=== PATIENT | female | born 1960 | race Caucasian/White ===

== ENCOUNTER 2021-08-23 15:13 | Emergency (ER) | payer BC, SELFPAY ==
[2021-08-23 17:29] VITALS: BP 165/93; PULSE 78; RESP 16; TEMP 37.1; O2SAT 96; BMI 21.2
[2021-08-23] MEDS: Ondansetron ODT 4 MG TAB.RAPDIS TRANSLINGU (17:36)
[2021-08-23 17:44] LABS: MANUAL DIFF FLAG NO
[2021-08-23 17:54] LABS: Basophils Percent Auto 0.3 % (0-2); Eosinophils Absolute Auto 0.2 X10*3/uL (0.0-0.4); Eosinophils Percent Auto 2.5 % (0-4); Hematocrit 41.8 % (37.0-47.0); Hemoglobin 14.5 g/dl (12.0-16.0); Imm Gran Abs Auto 0.01 X10*3/uL (0.00-0.03); Imm Gran Pct Auto 0.2 % (0.0-0.4); Lymphocytes Absolute Auto 0.7 X10*3/uL (1.2-4.9); Lymphocytes Percent Auto 11.9 % (20-40); Mean Corpuscular HGB Conc 34.7 g/dl (31.0-35.0); Mean Corpuscular Hemoglobin 31.4 pg (27.0-33.0); Mean Corpuscular Volume 90.5 fL (80.0-98.0); Mean Platelet Volume 10.7 fL (9.4-12.3); Monocytes Absolute Auto 0.4 X10*3/uL (0.1-1.2); Monocytes Percent Auto 6.8 % (2-11); Neutrophils Absolute Auto 4.8 x10*3/uL (2.0-8.3); Neutrophils Percent Auto 78.3 % (45-73); Platelet Count 221 X10*3/uL (160-400); Red Blood Count 4.62 X10*6/uL (4.20-5.50); Red Cell Distribution Width 12.5 % (11.0-16.0); White Blood Count 6.1 X10*3/uL (4.8-10.8)
[2021-08-23 18:01] LABS: Appearance Urine CLEAR; Color Urine YELLOW; Glucose Urine UA NEG (NEG); Leukocyte Esterase Urine NEG (NEG); Nitrite Urine NEG (NEG); PH 6.5 (5.0-8.0); Specific Gravity - Urine 1.015 (1.005-1.025); Urine Blood NEG (NEG); Urine Ketones NEG (NEG); Urine Protein NEG (NEG-TRACE)
[2021-08-23 18:05] LABS: Alanine Aminotransferase 15 U/L (0-31); Albumin Level 4.7 g/dL (3.5-5.0); Alkaline Phosphatase 64 U/L (39-117); Anion Gap 12 (12-20); Aspartate Amino Transferase 21 U/L (5-31); Bilirubin Direct 0.3 mg/dL (0.0-0.5); Bilirubin Total 0.8 mg/dL (0.0-1.0); Blood Urea Nitrogen 12 mg/dL (9-16); Calcium 9.3 mg/dL (8.4-10.2); Carbon Dioxide 26 mmol/L (22-29); Chloride 105 mmol/L (96-108); Creatinine Clr Calc Pharmacy 58.3; Estimated Glomerular Filt Rate > 60; Glucose Random 123 mg/dL (60-115); Potassium 3.8 mmol/L (3.3-5.1); Sodium 139 mmol/L (135-145); Total Protein 7.3 g/dL (6.5-8.0)
[2021-08-23 19:21] VITALS: BP 147/85; PULSE 78; RESP 18; O2SAT 99
--- NOTE | 2021-08-23 19:54 | ED.ABDPAIN ---
HPI - Abdominal Pain General Chief Complaint: Abdominal Pain Stated Complaint: abd pain Time Seen by Provider: 08/23/21 19:43 Source: patient Mode of arrival: ambulatory Limitations: no limitations History of Present Illness HPI narrative: Patient comes to emergency room complaining of abdominal cramping, dry heaving. Patient states that she has been evaluated multiple times in different emergency rooms, primary care physician, and gastroenterology. Patient states that she has been cleared multiple times. Patient denies vomiting, no diarrhea, occasional constipation. Related Data Previous Rx's Medication Instructions Recorded hyoscyamine sulfate 0.125 mg tablet 0.125 mg PO QID PRN dyspepsia #14 08/23/21 tabs Allergies Allergy/AdvReac Type Severity Reaction Status Date / Time From PERCOCET Allergy Unknown RASH Uncoded 11/13/19 15:58 percocet Allergy Unknown Rash Uncoded 08/23/21 17:27 Review of Systems Review of Systems Constitutional : No Weight loss, No Fever, No Chills, No Night Sweats, No Fatigue, No Malaise ENT/Mouth : No Hearing loss, No Ear Pain, No Nasal Congestion, No Sinus Pain, No Hoarseness, No sore throat, No Rhinorrhea, No Swallowing Difficulty Eyes: No Eye Pain, No Swelling, No Redness, No Foreign Body, No Discharge, No Vision Changes Cardiovascular : No Chest Pain, No SOB, No Dyspnea on Exertion, No Orthopnea, No Edema, No Palpitations Respiratory : No Cough, No Sputum, No Wheezing, No Smoke Exposure, No Dyspnea Gastrointestinal : Complaining of Nausea, No Vomiting, No Diarrhea, intermittent Constipation, complaining of bilateral lower quadrant cramping Genitourinary : no irregular bleeding, No Dysuria, No Urinary Frequency, No Hematuria, No Urinary Incontinence, No Urgency, No Flank Pain, No Urinary Flow Changes, No Hesitancy Musculoskeletal : No joint pain, No Myalgias, No Joint Swelling Skin : No Skin Lesions, No rash Neuro : No Weakness, No Numbness, No Paresthesias, No Loss of Consciousness, No Dizziness, No Headache Psych : No Anxiety/Panic, No Depression, No SI/HI/AH/VH, No Social Issues, Heme/Lymph: No Bruising, No Bleeding,No Lymphadenopathy Endocrine : No Polyuria, No Polydipsia, No Temperature Intolerance FORMERLY [facility] Past Medical History Medical History (Updated 08/23/21 @ 20:10 by Bella Katz MD) Chronic abdominal pain Social History Social History Alcohol intake: never Patient Tobacco Use Status: Never used Tobacco Use of substances other than those prescribed or required for medical reasons: No Advance Directives: No Advance Directives Information Provided: No Patient : No Physical Exam ED Vital Signs: Vital Signs - 24 hr 08/23/21 17:29 08/23/21 19:21 Temperature 98.8 F Pulse Rate 78 78 Respiratory Rate 16 18 Blood Pressure 165/93 H 147/85 H Pulse Oximetry 96 99 Oxygen Delivery Method Room Air Room Air BMI result Body Mass Index 21.2 Const Other: Appearance: Alert. Oriented X3. No acute distress. Patient is well-appearing Eyes: Pupils equal, round and reactive to light. ENT: Pharynx normal. Neck: Normal inspection. Neck supple. No lymph nodes noted. No crepitus CVS: Normal heart rate and rhythm. Pulses normal. Normal S1 and S2 Respiratory: No respiratory distress. Breath sounds normal. No Wheezing. No rales Abdomen: Soft, mild discomfort in both lower quadrants, no significant tenderness No rigidity. No distention. No guarding, no left lower quadrant pain, no pain over McBurney's point, negative Flores sign Skin: Skin warm and dry. Normal skin color. Normal skin turgor. Extremities: No lower extremity edema. No Lacerations. No Rash Neuro: Oriented X 3. No motor deficit. No sensory deficit. Moving all extremities. No slurred speech. CN 2 through 12 grossly intact Psych: calm, cooperative, normal affect Course Course Course Narrative: Patient's physical exam is relatively normal, abdomen is soft, no significant tenderness. Labs within normal limits. Patient was given p.o. Bentyl I discussed with the patient that she has had multiple episodes abdominal pain like this. Patient instructed to follow-up with gastroenterology MDM - Abdominal Pain Lab Data Result diagrams: 08/23/21 17:38 08/23/21 17:38 Labs: Lab Results 08/23/21 08/23/21 08/23/21 Range/Units 17:38 17:38 17:38 WBC 6.1 (4.8-10.8) X10*3/uL RBC 4.62 (4.20-5.50) X10*6/uL Hgb 14.5 (12.0-16.0) g/dl Hct 41.8 (37.0-47.0) % MCV 90.5 (80.0-98.0) fL MCH 31.4 (27.0-33.0) pg MCHC 34.7 (31.0-35.0) g/dl RDW 12.5 (11.0-16.0) % Plt Count 221 (160-400) X10*3/uL MPV 10.7 (9.4-12.3) fL Immature Gran % (Auto) 0.2 (0.0-0.4) % Neut % (Auto) 78.3 H (45-73) % Lymph % (Auto) 11.9 L (20-40) % Parmer % (Auto) 6.8 (2-11) % Eos % (Auto) 2.5 (0-4) % Baso % (Auto) 0.3 (0-2) % Lymph # (Auto) 0.7 L (1.2-4.9) X10*3/uL Parmer # (Auto) 0.4 (0.1-1.2) X10*3/uL Eos # (Auto) 0.2 (0.0-0.4) X10*3/uL Baso # (Auto) 0.0 (0.0-0.2) X10*3/uL Abs Immat Gran (auto) 0.01 (0.00-0.03) X10*3/uL Absolute Neuts (auto) 4.8 (2.0-8.3) x10*3/uL Absolute Nucleated RBC 0.000 (0.0-0.012) X10*3/uL Nucleated RBC % (auto) 0.0 (0.0-0.2) /100WBC Sodium 139 (135-145) mmol/L Potassium 3.8 (3.3-5.1) mmol/L Chloride 105 (96-108) mmol/L Carbon Dioxide 26 (22-29) mmol/L Anion Gap 12 (12-20) BUN 12 (9-16) mg/dL Creatinine 0.69 (0.5-1.4) mg/dL Estim Creat Clear Calc 58.3 Estimated GFR > 60 Random Glucose 123 H (60-115) mg/dL Calcium 9.3 (8.4-10.2) mg/dL Total Bilirubin 0.8 (0.0-1.0) mg/dL Direct Bilirubin 0.3 (0.0-0.5) mg/dL AST 21 (5-31) U/L ALT 15 (0-31) U/L Alkaline Phosphatase 64 (39-117) U/L Total Protein 7.3 (6.5-8.0) g/dL Albumin 4.7 (3.5-5.0) g/dL Urine Color YELLOW Urine Appearance CLEAR Urine pH 6.5 (5.0-8.0) Ur Specific Phelps 1.015 (1.005-1.025) Urine Protein NEG (NEG-TRACE) MG/DL Urine Glucose (UA) NEG (NEG) MG/DL Urine Ketones NEG (NEG) MG/DL Urine Blood NEG (NEG) Urine Nitrite NEG (NEG) Ur Leukocyte Esterase NEG (NEG) Discharge Plan Discharge Clinical Impression: Abdominal pain Patient Disposition: Home, Self-Care Instructions: Abdominal Pain (ED) Additional Instructions: Please follow-up with your primary care physician tomorrow. If you have any worsening or new symptoms, please return to the emergency room or call 911 Prescriptions: New hyoscyamine sulfate 0.125 mg tablet 0.125 mg PO QID PRN (Reason: dyspepsia) Qty: 14 0RF
[2021-08-23] MEDS: Dicyclomine HCl 10 MG CAPSULE PO (20:08)
== END 2021-08-23 20:29 | disposition home or self-care (01) ==
PROVIDERS: Emergency Provider Emergency Medicine; PCP Internal Medicine
DX: R10.9 Unspecified abdominal pain (principal)
CPT/HCPCS: 36415; 80048; 80076; 81003; 85025; 99283; 99284

== ENCOUNTER 2022-03-14 15:14 | Outpatient (REF) | payer BC, SELFPAY ==
[2022-03-18 03:18] LABS: HPV mRNA E6/E7 rflx Not Detected (Not Detected)
== END 2022-03-14 15:15 | disposition home or self-care (01) ==
LOC: HO.LNP 15:14
PROVIDERS: PCP Internal Medicine; Visit Provider Obstetrics & Gynecology
DX: Z01.419 Encounter for gynecological examination (general) (routine) without abnormal findings (principal); Z11.51 Encounter for screening for human papillomavirus (HPV)
CPT/HCPCS: 87624; 88142

== ENCOUNTER 2022-04-07 13:21 | Outpatient (REF) | payer BC, SELFPAY ==
--- NOTE | ~2022-04-07 | MM_ITS ---
EXAMINATION: MM SCREENING DIGITAL BREAST TOMOSYNTHESIS, BILATERAL CLINICAL INFORMATION: Screening. Asymptomatic. The lifetime risk of breast cancer based on the Tyrer-Cuzick Model is 4%. COMPARISON: Outside mammography: 04/08/2014, 04/04/2013 ([facility]) TECHNIQUE: Digital breast tomosynthesis is performed in both the craniocaudal and mediolateral oblique views along with computer-aided detection (CAD). Synthesized 2D images are generated from the tomosynthesis. FINDINGS: There are scattered areas of fibroglandular density (ACR BI-RADS breast composition Category b). There are no significant masses, abnormal calcifications, or other abnormalities. Parenchymal pattern is similar to prior outside studies. No developing density or architectural abnormality or significant changes. MM/MM tomosynthesis screening BI IMPRESSION: No mammographic evidence of malignancy. ASSESSMENT: BI-RADS 1: Negative RECOMMENDATION: Routine annual mammography screening. This patient's information was entered into a reminder system with a target due date for their next mammogram.
== END 2022-04-07 13:22 | disposition home or self-care (01) ==
LOC: HO.MAMMO 13:21
PROVIDERS: Visit Provider Obstetrics & Gynecology
DX: Z12.31 Encounter for screening mammogram for malignant neoplasm of breast (principal)
CPT/HCPCS: 77063; 77067

== ENCOUNTER → 2022-07-14 14:57 | Outpatient (BNVA) | payer BC, SELFPAY | PROVIDERS: Visit Provider Internal Medicine ==

== ENCOUNTER 2023-03-19 14:52 | Outpatient (AMB) | payer BC, SELFPAY ==
--- NOTE | 2023-03-19 15:24 | A.OFFVIS_ITS ---
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 No complaints. Last Pap/HPV was ascus/HPV negative in 03/20 Last Mammogram was BI-RADS 1 in 04/20 Last screening colonoscopy was 5 years ago, the patient was recently seen by GI for another screening colonoscopy PFSH Medical History Chronic abdominal pain Surgical History Hx of colonoscopy History of esophagogastroduodenoscopy (EGD) Hx of tubal ligation Hx of neck surgery Hx of section Family History Mother Diabetes HTN (hypertension) Brother Diabetes Colon cancer Maternal Grandfather Diabetes Social History Household Members: Family Housing: House Alcohol intake: current Alcohol intake frequency: holidays/special occasions only Patient Tobacco Use Status: Never used Tobacco service: No Current occupational status: employed 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 Sexual orientation: Straight/Heterosexual Gender identity: Female Female Reproductive History Menstrual Menopause type: natural Total pregnancies: 7 Full term: 6 Number of Living Children: 6 Ab induced: 1 Date of last pap smear: 03/15/22 Date of Mammogram: 04/07/22 Review of Systems Const All systems reviewed & are unremarkable except as noted in HPI and below Card Reports as per HPI Resp Reports as per HPI GI Reports as per HPI and Reports no additional complaints Reports as per HPI Physical Exam Vital Signs: BMI result Body Mass Index 22.8 Const General: cooperative, healthy appearing and comfortable Chest Chest palpation & inspection: normal inspection of the chest and normal palpation of entire chest wall Breast/axilla inspection: normal inspection of the breasts and normal inspection of the axillae Breast/axilla palpation: normal palpation of the breasts, normal palpation of the axillae and no axillary lymphadenopathy Resp Effort & Inspection: normal respiratory effort Auscultation: clear to auscultation bilaterally Percussion: percussion normal Cardio Palpation: normal PMI Rate: regular rate Rhythm: regular rhythm Heart sounds: no murmurs and no rubs Peripheral pulses: Peripheral pulses 2+ throughout GI Inspection: Yes normal to inspection Palpation (GI): Soft to palpation, nontender, no guarding, not rigid and No hepatosplenomegaly present Percussion: Yes normal to percussion Auscultation: normal bowel sounds Rectal Exam - Female: deferred General: Yes bladder normal to palpation External Female Exam: No lesion Speculum Exam - Vagina: normal appearance of the vagina, normal palpation, normal vaginal discharge and not erythematous Speculum Exam - Cervix: normal appearance of the cervix and normal palpation Bimanual exam- vagina & uterus: normal bimanual exam, normal palpation, uterine size normal, bladder normal to palpation, consistency normal and normal palpation Bimanual Exam- Adnexa, other: normal adnexae, no masses and no tenderness Assessment & Plan Assessment & Plan (1) Well woman exam: Comment: Ascus/HPV negative in 03/20 Code(s): Z01.419 - Encounter for gynecological examination (general) (routine) without abnormal findings Plan: Co testing not indicated this year, co testing to be treated in 03/23 Counseled the patient about the recommended dietary allowance of 1200 mg of Calcium & 600 IU of vitamin D. Mammogram ordered. The patient was recently seen by GI for screening colonoscopy . The patient was instructed to perform monthly self-breast exams and schedule annual exam in a year. All questions answered and the patient verbalized understanding. Orders: Orders MM tomosynthesis screening BI Today Z12.31 - Encounter for screening mammogram for malignant neoplasm of breast Coding Level of Care Code Est Pt Prev Care 40-64y(04131) Diagnoses Well woman exam Z01.419
[2023-03-19 15:26] VITALS: BP 142/70; BMI 22.8
== END 2023-03-19 16:09 | disposition home or self-care (01) ==
LOC: HO.HWS 14:52
PROVIDERS: PCP Nurse Practitioner Primary Care; Visit Provider Obstetrics & Gynecology
DX: Z01.419 Encounter for gynecological examination (general) (routine) without abnormal findings (principal)
CPT/HCPCS: 99396

== ENCOUNTER → 2023-03-19 14:52 | Outpatient (BNVA) | payer BC, SELFPAY | PROVIDERS: PCP Nurse Practitioner Primary Care; Visit Provider Obstetrics & Gynecology ==

== ENCOUNTER 2023-03-29 07:11 | Day surgery (SDC) | payer BC, SELFPAY ==
[2023-03-27 10:45] VITALS: BMI 22.6
[2023-03-29 07:16] VITALS: BMI 22.2
[2023-03-29 07:37] VITALS: BP 146/84; PULSE 79; RESP 16; TEMP 36.1; O2SAT 98
[2023-03-29] MEDS: Lactated Ringers 1,000 ML 80 ML IVCONT (07:40)
--- NOTE | 2023-03-29 08:11 | MHC.SHP ---
Pre-Procedural Eval Section A - 24 Hr Update-Section A only Date of Service: 03/29/23 Section B - Complete if H&P > 30 days Chief Complaint: Personal history of colonic polyps Details of Present Illness: Medical History Chronic abdominal pain Surgical History History of esophagogastroduodenoscopy (EGD) Hx of section Hx of colonoscopy Hx of neck surgery Hx of tubal ligation Allergies: Allergies Allergy/AdvReac Type Severity Reaction Status Date / Time From PERCOCET Allergy Unknown RASH Uncoded 03/29/23 07:24 Review of Systems Review of Systems Comment: Ten point ROS negative except as above Exam Exam Comment: Gen appear: No acute distress HEENT: no icterus Chest: No overt resp distress Abd: soft, nontender, nondistended Psych: Stable affect, answering questions appropriately Neuro: A/Ox3 noted to move all extremities spontaneously Ext: no peripheral edema Plan Diagnosis/Plan: Unchanged I have reviewed the history and physical and performed a pertinent physical examination on my patient. No changes have occurred unless specified. Time Spent With Patient Time: Total time managing care of this patient today ____ minutes.
--- NOTE | 2023-03-29 08:23 | P.CONAN_ITS ---
[facility] Active Problems Active Problems: All Active Problems (Updated 03/19/23 @ 15:32 by Choco Nixon MD) Personal history of colonic polyps (Acute) Well woman exam (Acute) Past Medical History Medical History Chronic abdominal pain Functional capacity: independent ambulation Patient : No Family History Family History Mother Diabetes HTN (hypertension) Brother Diabetes Colon cancer Maternal Grandfather Diabetes Family history of problems with anesthesia: No Surgical History Surgical History Hx of colonoscopy History of esophagogastroduodenoscopy (EGD) Hx of tubal ligation Hx of neck surgery Hx of section History of Problems with Anesthesia: No Social History Social History Household Members: Family Housing: House Alcohol intake: current Alcohol intake frequency: holidays/special occasions only Patient Tobacco Use Status: Never used Tobacco Use of substances other than those prescribed or required for medical reasons: No Are you DNR?: No Advance Directives: No Advance Directives Information Provided: Yes service: No Current occupational status: employed Current occupation: [employer] Sexual orientation: Straight/Heterosexual Gender identity: Female Meds Allergies Allergy/AdvReac Type Severity Reaction Status Date / Time From PERCOCET Allergy Unknown RASH Uncoded 03/29/23 07:24 Active Medications: Current Medications Lactated Ringer's (Lr) 1,000 mls @ 80 mls/hr IVCONT .[id number] NADIR Last Admin: 03/29/23 07:40 Dose: 80 mls/hr Home Medications Medication Instructions Recorded Confirmed Last Taken Type hydrocodone 5 mg-acetaminophen 325 1 tab PO Q4-6H PRN pain 03/14/22 03/29/23 03/29/23 History mg tablet gabapentin 300 mg capsule 600 mg PO BID 07/14/22 03/29/23 03/28/23 History Exam Height,Weight and Vital Signs: Height 4 ft 11 in Weight 49.895 kg Last Vital Signs Temp 97.0 F 03/29/23 07:37 Pulse 79 03/29/23 07:37 Resp 16 03/29/23 07:37 BP 146/84 H 03/29/23 07:37 Pulse Ox 98 03/29/23 07:37 O2 Del Method Room Air 03/29/23 07:37 Airway Mallampati Class: II TM Dist: >3cm Neck ROM: Full Heart: RRR Assessment and Plan Assessment Anesthesia Assessment: Anesthesia Plan Discussed Final Anesthetic Review Family History of Problems with Anesthesia: No History of Problems with Anesthesia: No NPO: Yes ASA Class: II Final Preanesthetic Review: Meds/Allgs Chart Reviewed, Consent Obtained/Reviewed and Anes Risks/Benef Reviewed Patient Risk: Low Procedure Risk: Low Anesthetic Plan Anesthetic Plan: MAC: Disposition: Standard PACU
--- NOTE | 2023-03-29 09:35 | P.OP_ITS ---
Operative Note Operative Note Date of Service: 03/29/23 Narrative: Procedure: Colonoscopy Indication: Personal hx of polyps Endoscopist: Prudence Collins MD Anesthesia Provider: Dr Suki Feliciano Anesthesia type: MAC Instrument: Olympus [id number]-H190L Consent: Indication, risks vs benefits, and alternatives were discussed with the patient who gave written informed consent to proceed. EKG, pulse, pulse oximetry and blood pressure were monitored throughout the procedure. Please see anesthesia flowsheet. Procedure: The patient was brought to the procedure room and placed in the left lateral decubitus position. IV medications were administered by the anesthesia provider in attendance. A digital rectal exam was performed which was normal. A distal attachment cap was affixed to the tip of the scope and the colonoscope was then inserted through the anus and advanced through the colon to the cecum at 75 cm,and terminal ileum. Mucosa was carefully examined under high definition white light as the instrument was slowly withdrawn in a retrograde panoramic fashion. Retroflexion was performed in rectum. The procedure was not difficult. There were no immediate obvious complications. The quality of the prep was BBPS: 3+3+3 = excellent Withdrawal time 13 minutes. Limitations: No limitations. Findings: Mucosa: Normal to cecum and terminal ileum. Protruding lesions: * 1 sessile polyp of size 4 mm in ascending colon. Cold snare polypectomy was performed. The polyp was completely removed and retrieved. * 4 sessile polyp of size 2-5 mm in transverse colon. Cold snare polypectomy was performed. The polyps were completely removed and retrieved. * 2 sessile polyp of size 4 mm in sigmoid colon. Cold snare polypectomy was performed. The polyps were completely removed and retrieved. * Medium internal hemorrhoids without stigmata of recent bleeding. Excavated lesions: * Mild diverticulosis of sigmoid colon. Impression: 1. Normal colon and terminal ileum mucosa 2. Total of 7 polyps removed 3. Sigmoid diverticulosis 3. Internal hemorrhoids Recommendations: - Follow path results. - Repeat colonoscopy in 3-5 years depending on path results
[2023-03-29 10:05] VITALS: BP 93/48; PULSE 74; RESP 16; TEMP 36.6; O2SAT 98
[2023-03-29 10:20] VITALS: BP 112/71; PULSE 75; RESP 14; O2SAT 100
[2023-03-29 10:35] VITALS: BP 130/75; PULSE 74; RESP 16; TEMP 36.1; O2SAT 100
--- NOTE | 2023-03-29 14:48 | HO.POSTANES ---
Post Anesthesia Evaluation Post Anesthesia Evaluation Date of Service: 03/29/23 Vital Signs: Vital Signs Temp Pulse Resp BP Pulse Ox O2 Del Method 03/29/23 10:35 97 F 74 16 130/75 100 Room Air 03/29/23 10:20 75 14 112/71 100 Room Air 03/29/23 10:05 97.8 F 74 16 93/48 L 98 Room Air 03/29/23 07:37 97.0 F 79 16 146/84 H 98 Room Air Anesthesia: Monitored Mental Status: Awake Pain Control: Satisfactory Nausea/Vomiting: None Hydration: Adequate Anesthesia-Related Issues: No Anes. Related Issues
== END 2023-03-29 10:54 | disposition home or self-care (01) ==
PROVIDERS: PCP Nurse Practitioner Primary Care; Visit Provider Internal Medicine
PROC: 0DJD8ZZ Inspection of Lower Intestinal Tract, Via Natural or Artificial Opening Endoscopic (ICD-10-PCS; CPT 45378; principal; 2023-03-29 09:10)
DX: Z12.11 Encounter for screening for malignant neoplasm of colon (principal); K57.30 Diverticulosis of large intestine without perforation or abscess without bleeding; K64.8 Other hemorrhoids; Z86.010 Personal history of colon polyps
CPT/HCPCS: 45385; 88305; J2704

== ENCOUNTER → 2023-03-29 07:11 | Outpatient (BNV) | payer BC, SELFPAY | PROVIDERS: PCP Nurse Practitioner Primary Care; Visit Provider Internal Medicine | DX: Z12.11 Encounter for screening for malignant neoplasm of colon (principal); Z86.010 Personal history of colon polyps; D12.2 Benign neoplasm of ascending colon; D12.3 Benign neoplasm of transverse colon; D12.5 Benign neoplasm of sigmoid colon; K64.8 Other hemorrhoids; K57.30 Diverticulosis of large intestine without perforation or abscess without bleeding | CPT/HCPCS: 45385 ==

== ENCOUNTER 2023-04-11 12:22 | Outpatient (AMB) | payer BC, SELFPAY ==
--- NOTE | 2023-04-11 12:28 | MHC.OFFVIS ---
Intake Vital Signs 04/11/23 12:29 Height 4 ft 11 in Weight 110 lb BMI 22.2 BP 137/87 Blood Pressure Location Lt brachial Position Sitting Pulse 83 Intake Visit Reasons: s/p colon Intake Note: Patient follow up for Colonoscopy results. Patient denies any GI issues. 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 Brother has CRC in his 70s. Previous two colonoscopies at [facility] and most recent one was around 5 years ago. 03/29/23: 1. Normal colon and terminal ileum mucosa 2. Total of 7 polyps removed 3. Sigmoid diverticulosis 3. Internal hemorrhoids Path: Diagnosis A. Colon, sigmoid, polypectomies: - Tubular adenoma; negative for high-grade dysplasia or carcinoma. - Colonic mucosa with mild surface hyperplastic changes. B. Colon, transverse, polypectomies: Tubular adenomata; negative for high-grade dysplasia or carcinoma. C. Colon, ascending, polypectomy: Fragments of tubular adenoma; negative for high-grade dysplasia or carcinoma 04/11/23: Doing well. Has no gastrointestinal complaints. Here for results of her colonoscopy. [facility] Medical History Chronic abdominal pain Surgical History Hx of colonoscopy History of esophagogastroduodenoscopy (EGD) Hx of tubal ligation Hx of neck surgery Hx of section Family History Mother Diabetes HTN (hypertension) Brother Diabetes Colon cancer Maternal Grandfather Diabetes Social History Household Members: Family Housing: House Alcohol intake: current Alcohol intake frequency: holidays/special occasions only Patient Tobacco Use Status: Never used Tobacco service: No Current occupational status: employed Current occupation: [employer] Sexual orientation: Straight/Heterosexual Gender identity: Female Review of Systems Const All systems reviewed & are unremarkable except as noted in HPI and below Physical Exam Vital Signs: Last Vital Signs Pulse 83 04/11/23 12:29 BP 137/87 04/11/23 12:29 BMI result Body Mass Index 22.2 Gen appear: NAD, well nourished HEENT: no icterus Chest: Normal respiratory effort Abd: soft, nondistended Ext: no peripheral edema Neuro: A/Ox3, noted to move all extremities spontaneously Assessment & Plan Assessment & Plan (1) Personal history of colonic polyps: Code(s): Z86.010 - Personal history of colonic polyps Plan Appears to have at least 5-6 tubular adenomas on most recent colonoscopy, and therefore we recommend next colonoscopy interval to be 3 years i.e in 2026. Reminder is set and bulletin board updated. P.r.n. follow-up in the meantime. Coding Level of Care Code Est Pt Level 3 (78022) Diagnoses Personal history of colonic polyps Z86.010
[2023-04-11 12:29] VITALS: BP 137/87; PULSE 83; BMI 22.2
== END 2023-04-11 14:04 | disposition home or self-care (01) ==
PROVIDERS: PCP Internal Medicine; Visit Provider Internal Medicine
DX: D12.3 Benign neoplasm of transverse colon (principal); D12.5 Benign neoplasm of sigmoid colon; K57.30 Diverticulosis of large intestine without perforation or abscess without bleeding; K64.8 Other hemorrhoids
CPT/HCPCS: 99213

== ENCOUNTER → 2023-04-11 12:22 | Outpatient (BNVA) | payer BC, SELFPAY | PROVIDERS: PCP Internal Medicine; Visit Provider Internal Medicine ==

== ENCOUNTER 2024-08-06 15:34 | Outpatient (REF) | payer BC, SELFPAY ==
[2024-08-11 13:04] LABS: HPV Genotype 16 Negative (Negative); HPV Genotype 18 Negative (Negative); HPV High Risk Negative (Negative)
== END 2024-08-06 15:35 | disposition home or self-care (01) ==
LOC: HO.LNP 15:34
PROVIDERS: PCP Internal Medicine; Visit Provider Obstetrics & Gynecology
DX: Z01.419 Encounter for gynecological examination (general) (routine) without abnormal findings (principal); Z11.51 Encounter for screening for human papillomavirus (HPV)
CPT/HCPCS: 87626; 88175

== ENCOUNTER 2024-08-06 15:34 | Outpatient (AMB) | payer BC, SELFPAY ==
[2024-08-06 15:37] VITALS: BP 144/80; BMI 23.1
--- NOTE | 2024-08-06 15:37 | MHC.OFFVIS ---
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 No complaints. Last Pap/HPV was ascus/HPV negative in 03/20 Last Mammogram was BI-RADS 1 in 04/20 Last Colonoscopy was in 04/21, the recommendation was to repeat in 3-5 years [facility] Medical History (Updated 08/06/24 @ 15:38 by Choco Nixon MD) ASCUS of cervix with negative high risk HPV Chronic abdominal pain Surgical History Hx of colonoscopy History of esophagogastroduodenoscopy (EGD) Hx of tubal ligation Hx of neck surgery Hx of section Family History Mother Diabetes HTN (hypertension) Brother Diabetes Colon cancer Maternal Grandfather Diabetes Social History Household Members: Family Housing: House Alcohol intake: current Alcohol intake frequency: holidays/special occasions only Patient Tobacco Use Status: Never used Tobacco service: No Current occupational status: employed Current occupation: [employer] Sexual orientation: Straight/Heterosexual Gender identity: Female Female Reproductive History Menstrual Total pregnancies: 6 Full term: 6 Number of Living Children: 6 Date of last pap smear: 03/15/22 History of abnormal pap smear: Yes Date of Mammogram: 04/07/22 Review of Systems Const All systems reviewed & are unremarkable except as noted in HPI and below Card Reports as per HPI Resp Reports as per HPI GI Reports as per HPI and Reports no additional complaints Reports as per HPI Physical Exam Const General: cooperative, healthy appearing and comfortable Chest Chest palpation & inspection: normal inspection of the chest and normal palpation of entire chest wall Breast/axilla inspection: normal inspection of the breasts and normal inspection of the axillae Breast/axilla palpation: normal palpation of the breasts, normal palpation of the axillae and no axillary lymphadenopathy Resp Effort & Inspection: normal respiratory effort Auscultation: clear to auscultation bilaterally Percussion: percussion normal Cardio Palpation: normal PMI Rate: regular rate Rhythm: regular rhythm Heart sounds: no murmurs and no rubs Peripheral pulses: Peripheral pulses 2+ throughout GI Inspection: Yes normal to inspection Palpation (GI): Soft to palpation, nontender, no guarding, not rigid and No hepatosplenomegaly present Percussion: Yes normal to percussion Auscultation: normal bowel sounds Rectal Exam - Female: deferred General: Yes bladder normal to palpation External Female Exam: No lesion Speculum Exam - Vagina: normal appearance of the vagina, normal palpation, normal vaginal discharge and not erythematous Speculum Exam - Cervix: normal appearance of the cervix and normal palpation Bimanual exam- vagina & uterus: normal bimanual exam, normal palpation, uterine size normal, bladder normal to palpation, consistency normal and normal palpation Bimanual Exam- Adnexa, other: normal adnexae, no masses and no tenderness Assessment & Plan Assessment & Plan (1) Well woman exam: Comment: Ascus/HPV negative in 03/20 Code(s): Z01.419 - Encounter for gynecological examination (general) (routine) without abnormal findings Category: Medical Plan: Co testing done. Counseled the patient about the recommended dietary allowance of 1200 mg of Calcium & 600 IU of vitamin D. Mammogram ordered. The patient was instructed to perform monthly self-breast exams and schedule annual exam in a year. All questions answered and the patient verbalized understanding. Orders: Orders MM tomosynthesis screening BI Today Z12.31 - Encounter for screening mammogram for malignant neoplasm of breast Coding Level of Care Code Est Pt Prev Care 40-64y(53944) Diagnoses Well woman exam Z01.419
--- OUTSIDE RECORDS SUMMARY | 2024-08-06 17:57 | XMS_ITS | Patient Health Record ---
[facility] Address [address] [place] [address] Care Team Providers Care Manager Environmental Health And Safety Name Role Phone Angie Gardner Primary Care Provider Chacorta Pastor Unavailable [phone] Allergies Allergen (clinical drug ingredient) Drug/Non Drug Allergy documented on EMR Reaction Allergy Type Onset Date Status acetaminophen / oxycodone Percocet rash Drug Allergy Active Reason For Referral No Information Medications Medication SIG (Take, Route, Frequency, Duration) Notes Start Date End Date Status Gabapentin 300 MG 3 tablet Orally Once a day Active tiZANidine HCl 4 MG 1 tablet as needed O rally every 8 hours as needed Active HYDROcodone-Acetaminophen 5-325 MG 1 tablet as needed Orally every 4 hrs Active Voltaren 1 % as directed External ly apply bid to foot for 30 days 06/15/2020 Active Immunizations Vaccine Route Administration Date Status Comme nts COVID-19 Moderna Vaccine Unknown 03/23/2020 Administere d COVID-19 Moderna Vaccine Unknown 04/20/2020 Administere d Social History Tobacco Use: Social History Observation Description Date Details (start date - stop date) Never Smoker NA - NA Tobacco Use/Smoking Question Answer Notes Are you a: nonsmoker Additional Findings: Tobacco Non-User Current no n-smoker Alcohol Screen Question Answer Notes Did you have a drink containing alcohol in the p ast year? No Points 0 Interpretation Negative Tobacco use other than smoking: Question Answer Notes Are you an other tobacco user? No Plan Of Treatment Pending Test Test Name Order Date X ray : Foot, right 3V 06/15/2020 Insurance Providers Payer Name Payer Address Payer Phone Subscriber Number Group Number Insured Name Patient Relationship to Insured Coverage Start Date Coverage End Date [facility] [address] [facility] [place] [address] [phone] [id number] Fariha Harrison Self - patient is the insured Medical (General) History Medical History History ICD Code chronic sinusitis Chicken pox Surgical History Surgery Date(Month/Year) X4 neck surgery front 2018 neck surgery back 09/15
== END 2024-08-06 16:02 | disposition home or self-care (01) ==
LOC: HO.HWS 15:34
PROVIDERS: PCP Internal Medicine; Visit Provider Obstetrics & Gynecology
DX: Z01.419 Encounter for gynecological examination (general) (routine) without abnormal findings (principal)
CPT/HCPCS: 99396; 99459

== ENCOUNTER 2024-09-04 09:23 | Outpatient (REF) | payer BC, SELFPAY ==
[2024-09-04 09:48] LABS: MANUAL DIFF FLAG NO
--- OUTSIDE RECORDS SUMMARY | 2024-09-04 09:53 | XMS_ITS | Patient Health Record ---
[facility] Address [address] [place] [address] Care Team Providers Care Senior Tax Manager Name Role Phone Angie Gardner Primary Care Provider Chacorta Pastor Unavailable [phone] Allergies Allergen (clinical drug ingredient) Drug/Non Drug [...] as directed External ly apply bid to foot; Duration: 30 days 06/15/2020 Active Immunizations Vaccine Route [...] Insured Coverage Start Date Coverage End Date [facility] [address] [facility] [place] [id number] [phone] [id number] Fariha Harrison Self - patient is the insured Medical (General) History Medical History History ICD Code chronic sinusitis Chicken pox Surgical History Surgery Date(Month/Year) X4 neck surgery front 2017 neck surgery back 09/15
[2024-09-04 10:40] LABS: Hematocrit 41.9 % (37.0-47.0); Hemoglobin 14.4 g/dl (12.0-16.0); Imm Gran Abs Auto 0.09 X10*3/uL (0.00-0.03); Imm Gran Pct Auto 1.0 % (0.0-0.4); Lymphocytes Absolute Auto 0.9 X10*3/uL (1.2-4.9); Mean Corpuscular HGB Conc 34.4 g/dl (31.0-35.0); Mean Corpuscular Hemoglobin 31.0 pg (27.0-33.0); Mean Corpuscular Volume 90.1 fL (80.0-98.0); NRBC Abs Auto 0.000 X10*3/uL (0.0-0.012); NRBC Pct Auto 0.0 /100WBC (0.0-0.2); Platelet Count 295 X10*3/uL (160-400); Red Blood Count 4.65 X10*6/uL (4.20-5.50); White Blood Count 9.1 X10*3/uL (4.8-10.8)
[2024-09-04 10:50] LABS: Hemoglobin A1C 141.4851 umol/L; Total Hemoglobin (HGBA1C) 3844.5706 umol/L
[2024-09-04 11:11] LABS: Alanine Aminotransferase 21 U/L (0-31); Albumin Level 5.0 g/dL (3.5-5.0); Alkaline Phosphatase 77 U/L (39-117); Anion Gap 13 (12-20); Aspartate Amino Transferase 19 U/L (5-31); Blood Urea Nitrogen 13 mg/dL (9-16); Calcium 9.7 mg/dL (8.4-10.2); Carbon Dioxide 25 mmol/L (22-29); Chloride 107 mmol/L (96-108); Cholesterol 262 mg/dL (<200); Estimated Glomerular Filt Rate > 60; HDL Cholesterol 91 mg/dL (>40); Iron 104 mcg/dL (30-160); Magnesium 2.3 mg/dL (1.6-2.6); Percent Iron Saturation 37 % (15-50); Potassium 4.5 mmol/L (3.3-5.1); Sodium 140 mmol/L (135-145); Total Iron Binding Capacity 282 mcg/dL (228-428); Total Protein 7.6 g/dL (6.5-8.0); Triglycerides 66 mg/dL (<150); Unsaturated Iron Binding 178 ug/dL
[2024-09-04 11:38] LABS: Ferritin 56 ng/mL (10-250); Free T4 (Free Thyroxine) 0.89 ng/dL (0.71-1.85); Thyroid Stimulating Hormone 0.34 uIU/mL (0.32-4.0)
[2024-09-04 11:40] LABS: Folate 9.3 ng/mL (> or = 4.0); Vitamin B12 303 pg/mL (200-900)
[2024-09-04 12:02] LABS: Reflex LDLD? No
== END 2024-09-04 09:24 | disposition home or self-care (01) ==
LOC: HO.LAB 09:23
PROVIDERS: PCP Nurse Practitioner; Visit Provider Nurse Practitioner
DX: D64.9 Anemia, unspecified (principal); R53.83 Other fatigue; E78.5 Hyperlipidemia, unspecified; Z13.1 Encounter for screening for diabetes mellitus
CPT/HCPCS: 36415; 80053; 80061; 82306; 82607; 82728; 82746; 83036; 83540; 83735; 84439; 84443; 85025

== ENCOUNTER → 2024-12-01 13:46 | Outpatient (REF) | payer BC, SELFPAY ==
--- NOTE | 2024-12-01 13:52 | CA_ITS ---
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 Normal LV ejection fraction of 60 65% with impaired relaxation filling pattern 2. [id number] tricuspid regurgitation 3. Upper limits of normal ascending aortic size 4. No pericardial effusion Findings Left Ventricle Normal left ventricular size, thickness, and systolic function. The visually estimated ejection fraction is between 60-65%. Spectral Doppler is indicative of an impaired relaxation filling pattern. Right Ventricle Normal right ventricular cavity size and systolic function. Atria Both atria are normal in size. There is no evidence of interatrial shunt. Aortic Valve Normal aortic valve structure and function. There is no aortic valve stenosis. There is no aortic valve regurgitation. Mitral Valve Normal mitral valve structure and function. There is no mitral valve regurgitation. There is no mitral valve stenosis. Pulmonic Valve The pulmonic valve is likely normal. Tricuspid Valve Normal tricuspid valve structure. There is mild to moderate tricuspid valve regurgitation. The right ventricular systolic pressure is normal. The right ventricular systolic pressure is 31 mmHg. Normal right atrial pressure. There is no evidence of pulmonary hypertension. Great Vessels All visible segments of the aorta are normal in size. The pulmonary artery was not well visualized. There is no dilatation of the ascending aorta measuring 3.50 cm. Venous The inferior vena cava is normal in size and collapses greater than 50% with inspiration. Pericardium/Pleural There is no evidence of pericardial effusion. Prior Study Comparison No prior study available for comparison. Measurements 2D Linear Measurements IVSd: 0.91 0.6-0.9/0.6-1.0 cm LVIDd: 3.50 3.9-5.3/4.2-5.9 cm LVIDd Index: 2.41 2.4-3.2/2.2-3.1 cm/m2 LVIDs: 2.39 2.0-3.6 cm LVPWd: 0.84 0.7-1.1 cm LA Diam: 2.60 2.7-3.8/3.0-4.0 cm LAIDs Index: 1.79 1.5-2.3 cm/m2 LV Mass: 105.47 67-162/88-224 g LV Mass Index: 72.74 43-95/49-115 g/m2 LVOT Diam: 1.90 3.0+(-)1.3 cm 2D Systolic Function EF 4C: 63.10 >55% EF 2C: 63.90 >55% EF BiP: 64.80 >55% Mitral Valve MV Pk E: 0.69 MV PK A: 0.54 MV Decel Time: 156.00 E/A: 1.30 E'Lateral: 10.40 E'Medial: 7.40 E/E' Med: 9.30 E/E' Lat: 6.60 PHT: 46.00 MVA PHT: 4.78 Decel [place]: 4.42 Aortic Valve AoV Pk Helder: 1.46 AoV Mn Helder: 0.95 AoV VTI: 0.29 AoV Pk Grad: 9.00 Aov Mn Grad: 4.00 DULCE Cont.VTI: 2.05 LVOT LVOT Pk Helder: 1.05 LVOT Mn Helder: 0.71 LVOT VTI: 0.21 LVOT Pk Grad: 4.00 LVOT Mn Grad: 2.00 LVOT Diam: 1.90 LVOT Area: 2.84 Diastolic Function MV Pk E: 0.69 MV Pk A: 0.54 E/A: 1.30 E'Medial: 7.40 E/E' Med: 9.30 E' Laterial: 10.40 E/E' Lat: 6.60 Right Ventricle TAPSE (mm): 24.20 TVS' Helder: 10.90 Tricuspid Valve TR Pk Helder: 2.63 TR Pk Grad: 28.00 RA Press: 3.00 RVSP: 31.00 Great Vessels Aorta Sinus of Valsalva: 2.58 2.0-3.[address] [place]: 2.31 1.7-3.4 cm Ao Asc: 3.50 2.1-3.4 cm Ao Arch: 2.90 Pulmonary Veins Pulm Vein S/D 2.00 Updated in Other Vendor System with Status of Final Johnny Graham MD electronically signed on 12/02/2024 1:03:37 PM with status of Final
--- OUTSIDE RECORDS SUMMARY | 2024-12-01 16:13 | XMS_ITS | Patient Health Record ---
[facility] [place] Address [address] [place] [address] Care Team Providers Care Facility Specialist Name Role Phone Angie Gardner Primary Care Provider Chacorta Beatty Unavailable [phone] Allergies Allergen (clinical drug ingredient) Drug/Non Drug [...] Insured Coverage Start Date Coverage End Date [facility] [address] [facility] [place] [address] [id number] Fariha Harrison Self - patient is the insured Medical (General) History Medical History History ICD Code chronic sinusitis Chicken pox Surgical History Surgery Date(Month/Year) X4 neck surgery front 2018 neck surgery back 09/15
--- OUTSIDE RECORDS SUMMARY | 2024-12-01 16:13 | XMS_ITS ---
Author Name [facility] Organization Unknown Care Team Organization Name Specialty Phone Email Start Date End Da te [facility] Angie Gardner Primary Care 01/03/2022 4
== END ==
LOC: HO.CARD 13:46
PROVIDERS: PCP Nurse Practitioner; Visit Provider Nurse Practitioner
DX: R01.1 Cardiac murmur, unspecified (principal)
CPT/HCPCS: 93306

== ENCOUNTER → 2024-12-01 13:52 | Outpatient (BNV) | payer BC, SELFPAY | PROVIDERS: PCP Nurse Practitioner; Visit Provider Internal Medicine Cardiovascular Disease | DX: I36.1 Nonrheumatic tricuspid (valve) insufficiency (principal) | CPT/HCPCS: 93306 ==

== ENCOUNTER 2024-12-12 13:43 | Outpatient (REF) | payer BC, SELFPAY ==
--- NOTE | ~2024-12-12 | XR_ITS ---
EXAMINATION: XR ANKLE, RIGHT CLINICAL INFORMATION: PAIN COMPARISON: None available. TECHNIQUE: AP, lateral, and mortise views of the right ankle. FINDINGS: No fracture. Alignment is anatomic. No erosions. Joint spaces are maintained. Soft tissues are normal. XR/XR ankle RT 2V IMPRESSION: Normal right ankle. Electronically signed by: Tegan Mohan MD 12/12/2024 02:20 PM EDT RP
--- NOTE | ~2024-12-12 | XR_ITS ---
EXAMINATION: XR KNEE, RIGHT CLINICAL INFORMATION: PAIN COMPARISON: None available. TECHNIQUE: 2 views of the right knee. FINDINGS: No fracture or joint effusion. Alignment is anatomic. Joint spaces are maintained. No abnormal soft tissue calcification. XR/XR knee RT 2V IMPRESSION: Normal right knee. Electronically signed by: Tegan Mohan MD 12/12/2024 02:18 PM EDT
--- NOTE | ~2024-12-12 | XR_ITS ---
EXAMINATION: XR LUMBOSACRAL SPINE CLINICAL INFORMATION: PAIN COMPARISON: None available. TECHNIQUE: Three views of the lumbosacral spine. 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 Levels are designated with the first nonrib-bearing type vertebral body designated as L1 and the most inferior lumbar type vertebral body designated as transitional. Bone alignment is normal. No fracture or dislocation. There is sacralization of the left transverse process of the transitional segment. Disc spaces are normal. Soft tissues are normal. 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 Sacralization of the left transverse process of the transitional segment on the left. Electronically signed by: Tegan Mohan MD 12/12/2024 02:24 PM EDT
--- OUTSIDE RECORDS SUMMARY | 2024-12-12 16:11 | XMS_ITS | Patient Health Record ---
[facility] [place] Address [address] [place] [address] Care Team Providers Care Gang Mower Operator Name Role Phone Angie Gardner Primary Care Provider Chacorta Beatty Unavailable [phone] Allergies Allergen (clinical drug ingredient) Drug/Non Drug [...] Insured Coverage Start Date Coverage End Date [facility] [address] [facility] [place] [id number] Fariha Harrison Self - patient is the insured Medical (General) History Medical History History ICD Code chronic sinusitis Chicken pox Surgical History Surgery Date(Month/Year) X4 neck surgery front 2018 neck surgery back 09/15
== END 2024-12-12 13:44 | disposition home or self-care (01) ==
LOC: HO.XRAY 13:43
PROVIDERS: PCP Nurse Practitioner; Visit Provider Physical Medicine & Rehabilitation
DX: M25.571 Pain in right ankle and joints of right foot (principal); M54.16 Radiculopathy, lumbar region; M25.561 Pain in right knee
CPT/HCPCS: 72100; 73560; 73600

== ENCOUNTER → 2024-12-12 14:07 | Outpatient (BNV) | payer BC, SELFPAY | PROVIDERS: PCP Nurse Practitioner; Visit Provider Radiology Diagnostic Radiology | DX: M54.50 Low back pain, unspecified (principal); M25.561 Pain in right knee; M25.571 Pain in right ankle and joints of right foot | CPT/HCPCS: 72100; 73560; 73600 ==

== ENCOUNTER 2025-01-20 09:39 | Outpatient (AMB) | payer BC, SELFPAY ==
--- NOTE | 2025-01-20 10:02 | A.PHYSOV ---
Vital Signs 01/20/25 10:03 Height 4 ft 11 in Weight 110 lb BMI 22.2 Intake Visit Reasons: 6W FUV Intake Note: Patient is a 64 year old patient in office today for a 6 week follow up visit. 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 The patient has a history of cervical fusion and continues to experience chronic cervical radiculitis, which is managed with hydrocodone providing 40 to 50% pain relief. The patient reports severe pain when lifting objects such as a gallon of milk and experiences exacerbation of pain with activities like typing and prolonged driving. The patient also reports pain in the right knee and ankle, which was previously evaluated with x-rays showing normal results for these areas. Lumbar radiculopathy is suspected due to positive Dural Tension signs in the right lower extremity, and lumbar sacral spine x-rays revealed transitional anatomy with sacralization of the left transverse process. All images were independently reviewed. Unfortunately, overall her pain has been getting progressively worse. She has been contemplating applying for disability, unfortunately she can not stop working and be without income. Lower back pain and right lower extremity pain reported during last visit have subsided and she is feeling better in that sense. Pain Description - Onset: Chronic pain following cervical fusion - Quality: Severe pain exacerbated by lifting and typing - Location: Cervical region, right knee, and right ankle - Radiation: Pain radiates to the right lower extremity - Exacerbating factors: Lifting, typing, prolonged driving - Relieving factors: Hydrocodone provides 40-50% relief Results - X-rays: Right ankle and right knee normal; lumbar sacral spine shows transitional anatomy with sacralization of the left transverse process. [facility] Medical History (Updated 01/20/25 @ 12:49 by Dustin Nagy DO) Chronic pain syndrome Cervical spinal stenosis Cervical radiculitis ASCUS of cervix with negative high risk HPV Chronic abdominal pain Surgical History Hx of colonoscopy History of esophagogastroduodenoscopy (EGD) Hx of tubal ligation Hx of neck surgery Hx of section Family History Mother Diabetes HTN (hypertension) Brother Diabetes Colon cancer Maternal Grandfather Diabetes Social History Household Members: Family Housing: House Alcohol intake: current Alcohol intake frequency: holidays/special occasions only Patient Tobacco Use Status: Never used Tobacco service: No Current occupational status: employed Current occupation: [employer] Sexual orientation: Straight/Heterosexual Gender identity: Female Review of Systems Narrative Review of Systems - Musculoskeletal: Reports chronic pain in cervical region, right knee, and right ankle. - Neurological: Reports radicular symptoms in the right lower extremity. - General: Reports frustration and impact on mood due to chronic pain. Denies change in bowel bladder habits, denies fever or chills, denies uncontrolled depression or suicidal ideation Physical Exam Exam Exam: Physical Exam - Neurological: Positive Dural Tension signs in the right lower extremity. Patient appears to be in no acute distress, appropriately conversant oriented. She ambulates without antalgia. She was able to perform heel walk and toe walk. Spurling maneuver was negative. Lhermitte's sign was negative. Cervical range of motion was restricted and side bending and extension. Neurologic examination of upper and lower extremities was nonfocal. Patient demonstrated no upper motor neuron signs. Vital Signs: BMI result Body Mass Index 22.2 Assessment & Plan Assessment & Plan (1) Cervical radiculitis: Code(s): M54.12 - Radiculopathy, cervical region Category: Medical (2) Cervical spinal stenosis: Code(s): M48.02 - Spinal stenosis, cervical region Category: Medical (3) Chronic pain syndrome: Code(s): G89.4 - Chronic pain syndrome Category: Medical Plan Pain Management - Affect: Pain impacts the patient's mood, causing frustration with daily activities and work. - Analgesia: Hydrocodone provides 40-50% pain relief; gabapentin is also used. - Adverse Effects: No specific adverse effects reported. - Activities of Daily Living: Pain limits ability to lift objects and perform work-related tasks. - Aberrant Drug Related Behaviors: No aberrant behaviors reported. Plan Patient was informed and verbally consented to the use of an ambient scribe for clinic note documentation during this visit. 1. Chronic Cervical Radiculitis The patient continues to manage chronic cervical radiculitis with hydrocodone, which provides partial pain relief. The plan includes continued use of hydrocodone and monitoring for any changes in pain levels or medication efficacy. 2. Lumbar Radiculopathy Lumbar radiculopathy is suspected based on positive Dural Tension signs and lumbar sacral spine x-ray findings. The plan involves monitoring symptoms and considering further diagnostic evaluations if symptoms persist or worsen. Discussion Notes During the visit, we discussed the management of chronic cervical radiculitis and lumbar radiculopathy. The patient is advised to continue with hydrocodone for pain management and to monitor for any changes in symptoms. We also reviewed the x-ray findings and discussed the potential need for further diagnostic evaluations if symptoms persist. Patient Instructions - Continue taking hydrocodone as prescribed for pain management. - Monitor for any changes in pain levels or new symptoms. - Follow up in three months or sooner if symptoms worsen. Medications: New gabapentin 600 mg PO BID 60 tabs 5RF pain 30 days G89.4 - Chronic pain syndrome, M48.02 - Spinal stenosis, cervical region, M54.12 - Radiculopathy, cervical region Changed From hydrocodone-acetaminophen 5-325 mg 1 tab PO Q4-6H PRN 0RF pain G89.4 - Chronic pain syndrome, M48.02 - Spinal stenosis, cervical region, M54.12 - Radiculopathy, cervical region To hydrocodone-acetaminophen 5-325 mg 1 tab PO Q4-6H PRN 168 tabs 0RF pain 28 days G89.4 - Chronic pain syndrome, M48.02 - Spinal stenosis, cervical region, M54.12 - Radiculopathy, cervical region Coding Level of Care Code Est Pt Level 4 (47167) Complex visit Add On G2211 Diagnoses Cervical radiculitis M54.12 Cervical spinal stenosis M48.02 Chronic pain syndrome G89.4
[2025-01-20 10:03] VITALS: BMI 22.2
== END 2025-01-20 10:37 | disposition home or self-care (01) ==
LOC: HO.HPHYS 09:39
PROVIDERS: PCP Nurse Practitioner; Visit Provider Physical Medicine & Rehabilitation
DX: M54.12 Radiculopathy, cervical region (principal); M48.02 Spinal stenosis, cervical region; G89.4 Chronic pain syndrome
CPT/HCPCS: 99214